=== PATIENT | female | born 1950 | race Caucasian/White ===

== ENCOUNTER 2017-07-05 10:16 | Outpatient (CLI) | payer MEDICARE, OTHER ==
--- NOTE | 2017-07-05 11:37 | XRAY Report ---
TWO VIEW CHEST: 07/05/2017 CLINICAL INDICATION: Hypertension, pneumonia. COMPARISON: 07/12/2010. FINDINGS: Frontal and lateral views of the chest demonstrate a normal cardiac silhouette. The lungs are hyperinflated, suggestive of COPD. Linear scarring or atelectasis is again noted in the lingula. No focal infiltrate, effusion, or pneumothorax is present. IMPRESSION: STABLE LEFT BASILAR SCARRING OR ATELECTASIS. NO SIGNIFICANT INTERVAL CHANGE. TD: 07/05/2017 11:36
== END 2017-07-05 10:17 | disposition home or self-care (01) ==
LOC: DI 10:16
PROVIDERS: ATTEND Family Medicine
DX: J18.8 Other pneumonia, unspecified organism (principal); I10 Essential (primary) hypertension
CPT/HCPCS: 71046

== ENCOUNTER 2017-12-03 11:16 | Outpatient (CLI) | payer MEDICARE, OTHER ==
--- NOTE | 2017-12-03 15:17 | XRAY Report ---
Procedure Date: 12/03/2017 Accession Number: [id number] / [id number] Procedure: XR - Foot 3 View RT CPT Code: FULL RESULT: EXAM: Foot 3 View RT DATE: 12/03/2017 11:37 AM CLINICAL HISTORY: CHRONIC R FOOT PX COMPARISON: None. TECHNIQUE: 3 views. FINDINGS: Bones: Inferior calcaneal spurring, plantar enthesopathy. No fractures or bone lesions. Joints: Mild degenerative changes of the midfoot with marginal osteophyte formation. Soft Tissues: Normal. No soft tissue swelling. IMPRESSION: Inferior calcaneal spurring and mild degenerative changes of the midfoot. RADIA
== END 2017-12-03 11:17 | disposition home or self-care (01) ==
LOC: DI 11:16
PROVIDERS: ATTEND Podiatrist
DX: M77.31 Calcaneal spur, right foot (principal); M19.071 Primary osteoarthritis, right ankle and foot

== ENCOUNTER 2018-12-16 09:28 | Outpatient (CLI) | payer MEDICARE, OTHER | END 2018-12-16 09:29 | disposition home or self-care (01) | LOC: RT 09:28 | PROVIDERS: ATTEND Surgery | DX: Z01.810 Encounter for preprocedural cardiovascular examination (principal); K42.9 Umbilical hernia without obstruction or gangrene | CPT/HCPCS: 93005 ==

== ENCOUNTER 2018-12-24 07:56 | Day surgery (SDC) | payer MEDICARE, OTHER ==
[~2018-12-24 07:56] MED LIST: CEFAZOLIN SODIUM IN 0.9 % NACL 2 GM/100 ML BAG IV ONE
[2018-12-24] MEDS ORDERED: LACTATED RINGERS 1,000 ML IV ONE (07:58)
--- NOTE | 2018-12-24 08:38 | ANESTHESIA ---
Pre-Anesthesia VS, & Labs - Diagnosis Umbilical hernia - Procedure Umbilical hernia repair Vital Signs: Temp Pulse Resp BP Pulse Ox 36 C L 83 18 151/98 H 95 12/24/18 08:02 12/24/18 08:02 12/24/18 08:02 12/24/18 08:02 12/24/18 08:02 Height 5 ft 4 in Weight (kg) 98 kg - NPO >8 hours - Is Patient ?: No Home Medications and Allergies Home Medications: Ambulatory Orders ALPRAZolam [Alprazolam] 0.25 mg PO DAILY PRN 12/16/18 Amlodipine Besylate 5 mg PO DAILY 12/16/18 Cholecalciferol (Vitamin D3) [Vitamin D] 2,000 unit PO DAILY 12/16/18 ALPRAZolam [Alprazolam] 0.25 mg PO DAILY PRN 12/16/18 Amlodipine Besylate 5 mg PO DAILY 12/16/18 Cholecalciferol (Vitamin D3) [Vitamin D] 2,000 unit PO DAILY 12/16/18 Allergies/Adverse Reactions: Allergies Allergy/AdvReac Type Severity Reaction Status Date / Time No Known Drug Allergies Allergy Verified 12/16/18 09:19 Anes History & Medical History - Anesthetic History Anesthesia Complications: reports: No previous complications Family history of Anesthesia Complications: Denies Family history of Malignant Hyperthermia: Denies - Medical History Cardiovascular: reports: Hypertension Pulmonary: reports: Pneumonia Gastrointestinal: reports: Colon polyps, Diverticulitis, Other Urinary: reports: None Musculoskeletal: reports: None Endocrine/Autoimmune: reports: None Skin: reports: Eczema Psychosocial: reports: Cannabis - Surgical History General: Bowel surgery, Colonoscopy Gynecologic: section, Hysterectomy Exam General: Alert, Oriented x3 Dental: WNL Mouth Openin Fingerbreadth Mallampati classification: II Thyromental Distance: 4-6 cm Respiratory: Lungs clear, Normal breath sounds Cardiovascular: Regular rate Neurological: Normal speech Mental/Cognitive Status: Alert/Oriented X3, Normal for patient Cognitive Status: Within normal limits Plan Anesthesia Type: General Consent for Procedure(s) Verified and Reviewed: Yes Code Status: Attempt Resuscitation ASA classification: 2-Mild systemic disease Is this case an emergency?: No
[2018-12-24] MEDS ORDERED: BUPIVACAINE 0.5%-EPI 1:200000 PF 30 ML VIAL ONE (09:41)
[2018-12-24] MEDS ORDERED: LIDOCAINE-MPF 1% 30 ML VIAL ONE (09:41)
[2018-12-24] MEDS ORDERED: ceFAZolin 1 GM VIAL ONE (10:11)
--- NOTE | 2018-12-24 10:39 | OPERATIVE REPORT ---
Operative Report - General Procedure Date: 12/24/18 Planned Procedure: Umbilical Hernia Repair Pre-Op Diagnosis: Umbilical Hernia Procedure Performed: Umbilical Hernia Repair Post Op Diagnosis: Same - Procedure Note Primary Surgeon: Erick Anesthesia Provider: SOILA Vanessa Anesthesia Technique: General LMA, Local Pathology: None Estimated Blood Loss (mL): 5 Indications: Incarcerated and Painful Umbilical Hernia Findings: 5 cm umbilical defect containing omentum and a loop of small bowel Complications: None apparent - Other Other Information/Narrative: After obtaining informed consent, the patient is brought to the operating room and placed in the supine position on the operating table. Following successful induction of general anesthesia, appropriate padding of all bony prominences, and placement of appropriate monitors, a timeout was held per SCOAP protocol. All elements of the perioperative safety checklist were observed during this procedure. Following infiltration with local anesthetic to create a field block, an incision was created directly through the umbilicus over the defect. This was carried down through the skin and subcutaneous tissue. The umbilical skin was released from the underlying fascia. This revealed a large complex hernia sac. The hernia sac itself was approximately 10 cm in diameter. Once the hernia sac was freed from the edges of the defect and we are able to reduce it back into the abdominal cavity, we noted the actual defect was approximately 5 cm. Due to the patient's body habitus and the size of the defect, I elected to repair this hernia using a ventral Arian mesh. An 8 cm patch was chosen and dipped into gentamicin containing solution. It was deployed carefully into the defect and flattened. The overlying leaflet were trimmed and sewn to the fascia with interrupted Prolene suture. The wound was checked for hemostasis and irrigated with warm saline solution. The umbilicus was reconstructed using the 0 Vicryl suture and the incisions were closed with 3-0 Vicryl and 4-0 Monocryl suture. All sponge, needle, and instrument counts were correct at the conclusion of the case. The patient was allowed to awaken from anesthesia without difficulty and taken to the postanesthesia care unit in good condition
[2018-12-24] MEDS ORDERED: HYDROmorphone 0.5 MG/0.5 ML SYRINGE IVP PRN (10:46)
[2018-12-24] MEDS ORDERED: ONDANSETRON 4 MG/2 ML VIAL IVP PRN (10:46)
[2018-12-24] MEDS ORDERED: oxyCODONE 5 MG TABLET PO PRN (10:46)
[2018-12-24 11:55] VITALS: BP 138/78
== END 2018-12-24 07:57 | disposition home or self-care (01) ==
LOC: SDS 07:56
PROVIDERS: ATTEND Surgery
PROC: 0WUF0JZ Supplement Abdominal Wall with Synthetic Substitute, Open Approach (ICD-10-PCS; principal; 2018-12-24 09:15)
DX: K42.9 Umbilical hernia without obstruction or gangrene (principal); I10 Essential (primary) hypertension; F17.210 Nicotine dependence, cigarettes, uncomplicated
CPT/HCPCS: 49585; C1781; J0690; J1170; J7120

== ENCOUNTER 2019-08-18 19:17 | Outpatient (CLI) | payer MEDICARE, OTHER | END 2019-08-18 19:18 | disposition home or self-care (01) | LOC: COV 19:17 | PROVIDERS: ATTEND Family Medicine | DX: R50.9 Fever, unspecified (principal); M79.10 Myalgia, unspecified site; R53.83 Other fatigue | CPT/HCPCS: 81599 ==

== ENCOUNTER 2020-01-29 17:11 | Inpatient (IN) | payer MEDICARE, OTHER ==
--- NOTE | 2020-01-29 17:33 | ED Physician Documentation ---
PD HPI ABD PAIN - Stated complaint Stated Complaint: ABD PX - Chief complaint Chief Complaint: Abd Pain - History obtained from History obtained from: Patient - History of Present Illness Timing - onset: How many days ago (2) Timing - duration: Days (2) Timing - details: Gradual onset, Still present, Waxing and waning Quality: Cramping, Aching, Fullness/distended, Pain Location: All over / everywhere (mostly mid abd to lower abd. Most painful around umbilicus in area of known hernia.), Periumbilical, Other (she has noted tenderness but not hardness in hernia area.) Improved by: Vomiting. No: BM Worsened by: Moving, Palpation Associated symptoms: Nausea, Vomiting. No: Fever, Diarrhea (has noted some small amount loose stool.), Constipation Similar symptoms before: Has not had sx before Recently seen: Clinic (Talked with Dr. Rojas regarding the recurrent hernia. She had had a previous hernia repair and it is developed out side and above of the prior. Decision process was to have it repaired electively when ready and the patient deferred at that time.) Review of Systems Constitutional: denies: Fever, Chills Nose: denies: Rhinorrhea / runny nose, Congestion Throat: denies: Sore throat Cardiac: denies: Chest pain / pressure Respiratory: denies: Dyspnea, Cough GI: reports: Abdominal Pain, Abdominal Swelling, Nausea, Vomiting. denies: Constipation, Hematemesis, Bloody / black stool : denies: Dysuria, Frequency Musculoskeletal: denies: Back pain Neurologic: reports: Generalized weakness. 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, Hysterectomy - Present Medications Home Medications: Ambulatory Orders Medication Instructions Recorded Confirmed ALPRAZolam [Alprazolam] 0.25 mg PO DAILY PRN 12/16/18 01/29/20 Amlodipine Besylate 5 mg PO DAILY 12/16/18 01/29/20 Cholecalciferol (Vitamin D3) 2,000 unit PO DAILY 12/16/18 01/29/20 [Vitamin D] - Allergies Allergies/Adverse Reactions: Allergies Allergy/AdvReac Type Severity Reaction Status Date / Time No Known Drug Allergies Allergy Verified 01/29/20 17:17 PD ED PE NORMAL - Vitals Vital signs reviewed: Yes - General General: Alert and oriented X 3, Well developed/nourished - HEENT HEENT: Moist mucous membranes, Pharynx benign - Neck Neck: Supple, no meningeal sign, No adenopathy - Cardiac Cardiac: RRR, No murmur - Respiratory Respiratory: Clear bilaterally - Abdomen Abdomen: No organomegaly, Other (Some firmness and distention of her supraumbilical hernia and it is tender but not hard. There is no redness of the area. Abdomen is distended with general increase in bowel sounds centrally. Diffuse mild tenderness.). No: Normal bowel sounds (increased) - Back Back: No CVA TTP - Derm Derm: Normal color, Warm and dry - Extremities Extremities: No tenderness to palpate, Normal ROM s pain, No edema, No calf tenderness / cord - Neuro Neuro: Alert and oriented X 3, No motor deficit, Normal speech Eye Opening: Spontaneous Motor: Obeys Commands Verbal: Oriented GCS Score: 15 Results - Vitals Vitals: Vital Signs - 24 hr 01/29/20 01/29/20 01/29/20 17:14 17:37 21:01 Temperature 36.9 C Heart Rate 85 74 76 Respiratory 20 22 16 Rate Blood Pressure 155/97 H 154/94 H 157/87 H O2 Saturation 94 96 99 Oxygen O2 Source Room air - Labs Labs: Laboratory Tests 01/29/20 01/29/20 01/29/20 17:54 17:54 20:00 WBC 11.3 H RBC 4.11 L Hgb 13.4 Hct 38.4 MCV 93.4 MCH 32.6 H MCHC 34.9 RDW 12.1 Plt Count 273 MPV 9.1 Neut # (Auto) 8.7 H Lymph # (Auto) 1.7 Jack # (Auto) 0.7 Eos # (Auto) 0.2 Baso # (Auto) 0.0 Absolute Nucleated RBC 0.00 Nucleated RBC % 0.0 Sodium 136 Potassium 3.7 Chloride 102 Carbon Dioxide 24 Anion Gap 10.0 BUN 10 Creatinine 0.8 Estimated GFR (MDRD) 71 L Glucose 135 H Calcium 9.3 Total Bilirubin 1.6 H AST 13 ALT 19 Alkaline Phosphatase 72 Total Protein 7.0 Albumin 4.2 Globulin 2.8 Albumin/Globulin Ratio 1.5 Lipase 23 Urine Color YELLOW Urine Clarity CLEAR Urine pH 5.5 Ur Specific Ken[place] <=1.005 Urine Protein NEGATIVE Urine Glucose (UA) NEGATIVE Urine Ketones NEGATIVE Urine Occult Blood NEGATIVE Urine Nitrite NEGATIVE Urine Bilirubin NEGATIVE Urine Urobilinogen 0.2 (NORMAL) Ur Leukocyte Esterase NEGATIVE Ur Microscopic Review NOT INDICATED Urine Culture Comments NOT INDICATED - Rads (name of study) abd CT Radiology: Prelim report reviewed (The bowel with some thickened wall in the anterior abdominal hernia sac. Small bowel obstruction with transition at that point.), See rad report PD MEDICAL DECISION MAKING - ED course Complexity details: re-evaluated patient (I could decompress the hernia but I don't believe I fully reduced it as she did not feel good relief of abd pain. ), considered differential (I can palpate at the hernia and its firm but reducible slowly I cannot tell if it fully reduces as there is still some deep tenderness. She still feels distended.), d/w patient ED course: Dr. Hare to consult and evaluate findings. Departure - Departure Disposition: [facility] DC/Xfer Clinical Impression: Incarcerated umbilical hernia, Small bowel obstruction Abdominal pain Qualifiers: Abdominal location: periumbilical Qualified Code(s): R10.33 - Periumbilical pain Condition: Serious Record reviewed to determine appropriate education?: Yes
[2020-01-29 18:00] LABS: BASOPHILS % (AUTO) 0.4 %; EOSINOPHILS # (AUTO) 0.2 10^3/uL (0.0-0.7); EOSINOPHILS % (AUTO) 1.8 %; HGB - HEMOGLOBIN 13.4 g/dL (12.0-16.0); LYMPHOCYTES # (AUTO) 1.7 10^3/uL (1.5-3.5); LYMPHOCYTES % (AUTO) 14.6 %; MEAN CORPUSCULAR HEMOGLOBIN 32.6 pg (27.0-31.0); MEAN CORPUSCULAR HGB CONC 34.9 g/dL (32.0-36.0); MEAN CORPUSCULAR VOLUME 93.4 fL (81.0-99.0); MEAN PLATELET VOLUME 9.1 fL (7.9-10.8); MONOCYTES # (AUTO) 0.7 10^3/uL (0.0-1.0); NEUTROPHILS # (AUTO) 8.7 10^3/uL (1.5-6.6); NEUTROPHILS % (AUTO) 76.8 %; PLT - PLATELET COUNT 273 10^3/uL (130-450); RED BLOOD COUNT 4.11 10^6/uL (4.20-5.40); RED CELL DISTRIBUTION WIDTH 12.1 % (12.0-15.0); WHITE BLOOD COUNT 11.3 x10^3/uL (4.8-10.8)
[2020-01-29] MEDS ORDERED: SODIUM CHLORIDE 0.9% 1,000 ML IV STA (18:08)
[2020-01-29] MEDS ORDERED: ONDANSETRON 4 MG/2 ML VIAL IVP STA (18:08)
[2020-01-29] MEDS ORDERED: KETOROLAC 30 MG/ML VIAL IVP STA (18:08)
[2020-01-29] MEDS ORDERED: ACETAMINOPHEN 1,000 MG/100 ML 100 ML IV ONE (18:09)
[2020-01-29 18:14] LABS: ALBUMIN 4.2 g/dL (3.2-5.5); ALBUMIN/GLOBULIN RATIO 1.5 (1.0-2.2); BILIRUBIN,TOTAL 1.6 mg/dL (0.2-1.0); CALCIUM 9.3 mg/dL (8.5-10.3); CREATININE 0.8 mg/dL (0.4-1.0)
[2020-01-29] MEDS ORDERED: IOVERSOL 320 100 ML VIAL IVP ONE ×2 (19:05→19:23)
--- NOTE | 2020-01-29 19:45 | CT Report ---
PROCEDURE: Abdomen/Pelvis W INDICATIONS: mid to left abd pain 2 days CONTRAST: IV CONTRAST: Optiray 320 ml: 100 PO CONTRAST: *NO PO CONTRAST TECHNIQUE: After the administration of intravenous contrast, 5 mm thick sections acquired from the diaphragms to the symphysis. 5 mm thick coronal and sagittal reformats were acquired. For radiation dose reducti on, the following was used: automated exposure control, adjustment of mA and/or kV according to trevor ent size. COMPARISON: None. FINDINGS: Image quality: Excellent. ABDOMEN: Lung bases: Lung bases are clear. Heart size is normal. Solid organs: Liver and spleen are normal in size and enhancement. Gallbladder is within normal scanlon its Biliary system is non dilated. Pancreas enhances normally. No adrenal nodules. Kidneys demons trate normal size and enhancement, without hydronephrosis. Peritoneum and bowel: Multiple dilated loops of small bowel noted. Loops of small bowel are dilated u p to 4.2 cm. Transition zone is in the mid ileum at the level of a periumbilical ventral hernia which contains a loop of small bowel. Mild circumferential wall thickening involving a portion of the candice iated loop of small bowel which could be due to under distention versus early ischemia/angulation. Sc attered diverticuli noted in the colon without evidence of diverticulitis. Trace free fluid is noted. No free air. Nodes and vessels: No retroperitoneal or mesenteric adenopathy by size criteria. Aorta and inferior vena cava are normal in size. Miscellaneous: No ventral hernias. PELVIS: Genitourinary: Bladder wall thickness is normal. Miscellaneous: No inguinal hernias or adenopathy. Bones: No suspicious bony lesions. No vertebral body compression fractures. Spine degenerative disc disease and facet arthropathy are noted. IMPRESSION: 1. Small bowel obstruction related to periumbilical ventral midline hernia. There is mild circumferen ce wall thickening involving a pertinent portion of the herniated loop of small bowel which could be due to under distention versus early ischemia/angulation. 2. Colonic diverticulosis without evidence of diverticulitis. 3. Trace free fluid. No free intraperitoneal air. Reviewed by: Chelsea Nye MD, PhD on 01/29/2020 7:43 PM PDT Approved by: Chelsea Nye MD, PhD on 01/29/2020 7:43 PM PDT Station ID: [id number]
[2020-01-29 20:10] LABS: BILIRUBIN,URINE NEGATIVE (NEGATIVE); GLUCOSE, URINE (UA) NEGATIVE (NEGATIVE); KETONES,URINE (UA) NEGATIVE (NEGATIVE); LEUKOCYTE ESTERASE, URINE NEGATIVE (NEGATIVE); NITRITE,URINE NEGATIVE (NEGATIVE); OCCULT BLOOD,URINE NEGATIVE (NEGATIVE); PH,URINE 5.5 PH (5.0-7.5); PROTEIN,URINE NEGATIVE (NEGATIVE); UROBILINOGEN,URINE 0.2 (NORMAL) E.U./dL (NORMAL)
[2020-01-29 20:11] LABS: CLARITY,URINE CLEAR (CLEAR)
[2020-01-29] MEDS ORDERED: HYDROmorphone 1 MG/ML CARPUJECT IVP STA (21:43)
[2020-01-29] MEDS ORDERED: ONDANSETRON 4 MG/2 ML VIAL IVP PRN (23:58)
[2020-01-29] MEDS ORDERED: ACETAMINOPHEN 1,000 MG/100 ML 100 ML IV PRN (23:58)
[2020-01-30] MEDS: D5NS W/20 MEQ KCL 1,000 ML IV SCH ×2 (01:23→08:55)
[2020-01-30] MEDS: METOCLOPRAMIDE 10 MG/2 ML VIAL IVP SCH ×5 (01:23→23:55)
[2020-01-30] MEDS: methocarbamoL 500 MG TABLET PO SCH ×5 (01:23→23:52)
[2020-01-30] MEDS: SODIUM CHLORIDE FLUSH 0.9% 10 ML SYRINGE IVP SCH ×4 (01:24→23:59)
[2020-01-30] MEDS: SODIUM CHLORIDE FLUSH 0.9% 10 ML SYRINGE IVP PRN ×2 (04:44→04:51)
[2020-01-30] MEDS: HYDROmorphone 0.5 MG/0.5 ML SYRINGE IVP PRN ×5 (04:44→22:48)
[2020-01-30] MEDS: PANTOPRAZOLE 40 MG VIAL IVP SCH (07:01)
[2020-01-30] MEDS: PHENOL THROAT SPRAY 177 ML MM PRN ×2 (07:02→09:05)
--- NOTE | 2020-01-30 07:31 | XRAY Report ---
PROCEDURE: Chest for Line Placement INDICATIONS: Post line placement TECHNIQUE: One view of the chest was acquired. COMPARISON: 07/05/2017 FINDINGS: Surgical changes and devices: Nasogastric tube projects across the GE junction with tip in the proxim al stomach and side port in the distal esophagus. Recommend advancing nasogastric tube several centim eters.. Lungs and pleura: No pleural effusions or pneumothorax. Lungs are clear. Mediastinum: Mediastinal contours appear normal. Heart size is normal. Bones and chest wall: No suspicious bony lesions. Overlying soft tissues appear unremarkable. IMPRESSION: 1. No acute cardiopulmonary disease process.. 2. Side port of nasogastric tube in the distal esophagus. Recommend advancing the tube several centim eters. Reviewed by: Chelsea Nye MD, PhD on 01/30/2020 7:30 AM PDT Approved by: Chelsea Nye MD, PhD on 01/30/2020 7:30 AM PDT Station ID: [id number]
[2020-01-30] MEDS ORDERED: ENOXAPARIN 40 MG/0.4 ML SYRINGE SUBQ SCH (09:00)
--- NOTE | 2020-01-30 10:22 | PHARMACY PROGRESS NOTE ---
- Best Possible Medication History Admit Date and Time: 01/29/20 1171 Processed by: Nursing Medication History completed: Yes As the person ultimately responsible for medication therapy, providers are able to order a medication from an existing home medication list in [facility] via the "Reconcile Routine" prior to Confirmation of that medication by user support analyst supervisor. Such practice is discouraged except when the physician, in their clinical judgment, deems that a medical need exists for a medication without regard to previous use.
--- NOTE | 2020-01-30 13:45 | SURGERY HX AND PHYSICAL(T) ---
Surgical History & Physical - Chief Complaint/HPI History of Present Illness: 69-year-old female presenting with small bowel obstruction/recurrent umbilical hernia inpatient with history of multiple abdominal surgeries including recent umbilical hernia repair who presents acutely with small bowel obstruction, transition point within the recurrent umbilical hernia. Patient had been seen in surgery clinic recently at which time she was diagnosed with recurrence of her umbilical hernia status post relatively recent repair by Dr. Michelle Suarez. Patient past surgical history include the followin. section 2. Tubal ligation 3. Sigmoid resection 4. Umbilical hernia - PMH/PSH/Social Hx Does the pt have a hx of MRSA?: No Neurological History: None Eyes, Ears, Nose, Throat: Chronic vision loss Cardiovascular: Hypertension Respiratory: Pneumonia Skin: Eczema Endocrine/Autoimmune: None Gastrointestinal: Colon polyps, Diverticulitis, Other Is Patient ?: No Urinary: None Musculoskeletal: None Blood Disorders: None Psychiatric: None PMH Other: 18 inches of colon resected for diverticulitis General: Bowel surgery, Colonoscopy Smoking Status: Current some day smoker Does the pt drink ETOH?: Yes Frequency: Occasional Does the pt have substance abuse?: Yes Substance Use and Type: Marijuana - Home Meds and Allergies Home Medications: ALPRAZolam [Alprazolam] 0.25 mg PO DAILY PRN 12/16/18 Amlodipine Besylate 5 mg PO DAILY 12/16/18 Cholecalciferol (Vitamin D3) [Vitamin D] 2,000 unit PO DAILY 12/16/18 Allergies/Adverse Reactions: Allergies Allergy/AdvReac Type Severity Reaction Status Date / Time No Known Drug Allergies Allergy Verified 01/29/20 17:17 - Review of Systems Gastrointestinal: Nausea, Vomiting, Abdominal pain - Vital Signs Heart Rate: 72 Blood Pressure: 138/78 Temperature: 36.6 C Respiratory Rate: 16 O2 Saturation: 97 Weight (kg): 102.2 kg Height: 1.63 m - Physical Exam General Appearance: positive: No acute distress, Alert, Mild distress Eyes Bilatera: positive: Normal inspection, PERRL, EOMI ENT: positive: ENT inspection nml Neck: positive: Nml inspection Respiratory: positive: Chest non-tender, No respiratory distress, Breath sounds nml. negative: Wheezes, Rales, Rhonchi Cardiovascular: positive: Regular rate & rhythm Abdomen: positive: Tenderness, Other (Distended, positive tenderness to deep palpation most notably overlying the umbilicus, palpable incarcerated hernia consistent with bowel as noted on CT scan. No rebound, no guarding. Overlying erythema.). negative: Guarding, Rebound Extremities: positive: Non-tender, Full ROM, Nml appearance Neurologic/Psychiatric: positive: Oriented x3, CN's nml (2-12), Motor nml, Sensation nml, Mood/affect nml - Patient Review Patient Review: Problems were reviewed with the patient during this visit. Medi cations were reviewed with the patient during this visit. Allergies were reviewed this patient during this visit. Pertinent Tests Reviewed: All pertitent test for this patient were reviewed. - Assessment & Plan Assessment and Plan: 69-year-old female with incarcerated umbilical hernia, recurrent, with small bowel unable to be reduced. Status post nasogastric decompression without significant improvement in constellation of symptoms most notably physical exam with persistent incarceration. Multiple prior abdominal surgeries. In the setting of incarcerated small bowel risk of and strangulation is significant. Attempted manual reduction to afford elective repair without success. Recommend operative intervention given the importance of achieving a viable repair using mesh underlay in this patient with recurrent hernia; if await bowel compromise would be unable to afford use of mesh reinforcement which would necessitate likely additional repair in the future. Risk benefits discussed questions answered informed consent has been obtained. Plan going forward is as follows: 1. Bowel rest, GI prophylaxis, nasogastric tube decompression, operative intervention. 2. Plan open primary repair, diagnostic laparoscopy, laparoscopic adhesio lysis, laparoscopic assisted intraperitoneal onlay mesh AKA IPOM.
[2020-01-30] MEDS ORDERED: BUPIVACAINE 0.5% PF 30 ML VIAL ONE (14:26)
[2020-01-30] MEDS ORDERED: LIDOCAINE 1%-EPI 1:100000 20 ML MDV ONE (14:26)
--- NOTE | 2020-01-30 14:26 | ANESTHESIA ---
Pre-Anesthesia VS, & Labs - Diagnosis Incarcerated Umbilical hernia - Procedure Exp lap, lysis of adhesions, repair with mesh Vital Signs: Temp Pulse Resp BP Pulse Ox 36.6 C 72 16 138/78 H 97 01/30/20 14:01 01/30/20 14:01 01/30/20 14:01 01/30/20 14:01 01/30/20 14:01 Height: 5 ft 4 in Weight (kg): 102.2 kg Body Mass Index: 38.7 BMI Classification: Obese - Is Patient ?: No - Lab Results Current Lab Results: Laboratory Tests 01/29/20 17:54: Sodium 136, Potassium 3.7, Chloride 102, Carbon Dioxide 24, A nion Gap 10.0, BUN 10, Creatinine 0.8, Estimated GFR (MDRD) 71 L, Glucose 135 H, Calcium 9.3, Total Bilirubin 1.6 H, AST 13, ALT 19, Alkaline Phosphatase 72, Total Protein 7.0, Albumin 4.2, Globulin 2.8, Albumin/Globulin Ratio 1.5, Lipase 23 01/29/20 17:54: WBC 11.3 H, RBC 4.11 L, Hgb 13.4, Hct 38.4, MCV 93.4, MCH 32.6 H , MCHC 34.9, RDW 12.1, Plt Count 273, MPV 9.1, Neut # (Auto) 8.7 H, Lymph # (Auto) 1.7, [place] # (Auto) 0.7, Eos # (Auto) 0.2, Baso # (Auto) 0.0, Absolute Nucleated RBC 0.00, Nucleated RBC % 0.0 Fish Bones: 01/29/20 17:54 01/29/20 17:54 Home Medications and Allergies Active Medications Enoxaparin Sodium (Lovenox) 40 mg SUBQ DAILY [facility] Last Admin: 01/30/20 08:56 Dose: 40 mg Documented by: Hydromorphone HCl (Dilaudid Inj Syringe) 0.5 mg IVP Q2H PRN PRN Reason: Pain 8 to 10 Last Admin: 01/30/20 04:44 Dose: 0.5 mg Documented by: Potassium Chloride/Dextrose/Sod Cl () 1,000 mls @ 125 mls/hr IV .Q8H [facility] Last Admin: 01/30/20 08:55 Dose: 125 mls/hr Documented by: Acetaminophen (Ofirmev) 100 mls @ 400 mls/hr IV Q6HR PRN PRN Reason: PAIN Methocarbamol (Robaxin) 500 mg PO Q6HR [facility] Last Admin: 01/30/20 12:13 Dose: 500 mg Documented by: Metoclopramide HCl (Reglan Inj) 10 mg IVP Q6HR [facility] Last Admin: 01/30/20 12:16 Dose: 10 mg Documented by: Ondansetron HCl (Zofran Inj) 4 mg IVP Q6HR PRN PRN Reason: Nausea / Vomiting Last Admin: 01/30/20 04:51 Dose: 4 mg Documented by: Pantoprazole Sodium (Protonix) 40 mg IVP QDAC [facility] Last Admin: 01/30/20 07:01 Dose: 40 mg Documented by: Phenol/Menthol (Chloraseptic) 2 sprays MM Q2HR PRN PRN Reason: Throat Pain Last Admin: 01/30/20 09:05 Dose: 2 sprays Documented by: Sodium Chloride (Normal Saline Flush 0.9%) 10 ml IVP 0100,0900,1700 [facility] Last Admin: 01/30/20 12:17 Dose: Not Given Documented by: Sodium Chloride (Normal Saline Flush 0.9%) 10 ml IVP PRN PRN PRN Reason: NEEDED PER PROVIDER ORDERS Last Admin: 01/30/20 04:51 Dose: 10 ml Documented by: ALPRAZolam [Alprazolam] 0.25 mg PO DAILY PRN 12/16/18 Amlodipine Besylate 5 mg PO DAILY 12/16/18 Cholecalciferol (Vitamin D3) [Vitamin D] 2,000 unit PO DAILY 12/16/18 Allergies/Adverse Reactions: Allergies Allergy/AdvReac Type Severity Reaction Status Date / Time No Known Drug Allergies Allergy Verified 01/29/20 17:17 Anes History & Medical History - Anesthetic History Anesthesia Complications: reports: No previous complications, Muscle weakness Family history of Malignant Hyperthermia: Denies - Medical History Cardiovascular: reports: Hypertension Gastrointestinal: reports: Colon polyps, Diverticulitis, Other Urinary: reports: None Neuro: reports: None Musculoskeletal: reports: None Endocrine/Autoimmune: reports: None Blood Disorders: reports: None Skin: reports: Eczema Smoking Status: Current some day smoker History of Cancer?: No Other Past Medical History: 18 inches of colon resected for diverticulitis - Surgical History General: Bowel surgery, Colonoscopy Gynecologic: section, Hysterectomy Exam General: Alert Dental: WNL Mouth Openin Fingerbreadth Neck Mobility: Reduced Mallampati classification: III Thyromental Distance: 4-6 cm Respiratory: Lungs clear, Normal breath sounds, No respiratory distress, No accessory muscle use Cardiovascular: Regular rate, Normal S1, Normal S2, No murmurs Abdomen: Normal bowel sounds, Soft, No tenderness, No hepatospenomegaly, No masses Extremities: No clubbing, No cyanosis, No edema, Normal pulses, No tenderness/swelling Neurological: Normal gait, Normal speech, Strength at 5/5 X4 ext, Normal tone, Sensation intact, Cranial nerves 3-12 NL, Reflexes 2+ Mental/Cognitive Status: Alert/Oriented X3, Normal for patient Cognitive Status: Within normal limits Plan Anesthesia Type: General Consent for Procedure(s) Verified and Reviewed: Yes Code Status: Attempt Resuscitation ASA classification: 3-Severe systemic disease Is this case an emergency?: Yes
[2020-01-30] MEDS ORDERED: BUPIVACAINE 0.5% PF 30 ML VIAL SUBQ ONE ×3 (14:57)
[2020-01-30] MEDS ORDERED: LIDOCAINE 1%-EPI 1:100000 20 ML MDV SUBQ ONE ×3 (14:57)
[2020-01-30] MEDS ORDERED: ePHEDrine 50 MG/ML VIAL IVP PRN (15:04)
[2020-01-30] MEDS ORDERED: METOCLOPRAMIDE 10 MG/2 ML VIAL IVP PRN (15:04)
[2020-01-30] MEDS ORDERED: MORPHINE 2 MG/ML CARPUJECT IVP PRN (15:04)
[2020-01-30] MEDS ORDERED: fentaNYL 100 MCG/2 ML VIAL IVP PRN (15:04)
[2020-01-30] MEDS ORDERED: NALOXONE 0.4 MG/ML VIAL IVP PRN (15:04)
[2020-01-30] MEDS ORDERED: ATROPINE ABBOJECT 1 MG/10 ML SYRINGE IVP PRN (15:04)
[2020-01-30] MEDS ORDERED: ONDANSETRON 4 MG/2 ML VIAL IVP PRN (15:04)
[2020-01-30] MEDS ORDERED: LACTATED RINGERS 1,000 ML IV SCH (16:00)
[2020-01-30] MEDS ORDERED: LACTATED RINGERS 150 ML IV ONE (16:53)
[2020-01-30] MEDS ORDERED: HYDROmorphone 0.5 MG/0.5 ML SYRINGE ONE ×2 (17:07→17:24)
--- NOTE | 2020-01-30 17:23 | ANESTHESIA POST OP EVALUATION ---
Anesthesia Post Eval - Post Anesthesia Eval Vitals: Last Vital Signs Temp 36.6 C 01/30/20 17:14 Pulse 83 01/30/20 17:14 Resp 14 01/30/20 17:14 BP 147/70 H 01/30/20 17:14 Pulse Ox 94 01/30/20 17:14 CV Function Including HR & BP: positive: Stable Pain Control: positive: Satisfactory Nausea & Vomiting: positive: Negative Mental Status: positive: Baseline Respiratory Status: Airway Patent Hydration Status: Satisfactory (awake alert and comfortable. Going to [facility].) Anesthesia Complications: positive: None
--- NOTE | 2020-01-30 23:31 | OPERATIVE REPORT ---
Operative Report - General Admit Date: 01/29/20 Procedure Date: 01/30/20 Planned Procedure: 1. Diagnostic laparoscopy 2. Laparoscopic adhesiolysis 3. Laparoscopic assisted ventral hernia repair Pre-Op Diagnosis: Incarcerated, recurrent umbilical hernia; multiple abdominal surgeries Procedure Performed: 1. Takedown of historic mesh disc, open 2. Open and laparoscopic adhesio lysis of incarcerated small bowel 3. Incarcerated hernia containing Meckel's diverticulum for which diverticulectomy performed 4. Serosal reinforcement at sites of adhesions 5. Laparoscopic-assisted ventral hernia repair with echo ST system 6. Drain placement Post Op Diagnosis: Same; incarcerated small bowel with Meckel's diverticulum large within the - Procedure Note Primary Surgeon: Ananya Secondary Surgeon: Jimbo Anesthesia Provider: Jane Anesthesia Technique: General ET tube, Local Pathology: 1. Meckel's diverticulum 2. Historic umbilical mesh Estimated Blood Loss (mL): 25 Drain/Tube Type: Damien drain Indications: 69-year-old female with multiple prior abdominal surgeries including but not limited to the followin. section 2. Tubal ligation 3. Reported sigmoid resection for diverticular disease 4. Umbilical hernia repair with mesh, open She has been seen in surgery clinic for reevaluation and found to have recurrent hernia and need operative repair. She presents in the acute setting with incarceration, without ability to reduce small bowel noted on CAT scan. There is erythema overlying the area and she also has acute obstructive symptoms. Patient was advised of the indication to undergo urgent operative intervention given failure of nonoperative management. Risk and benefits discussed questions answered informed consent obtained. Findings: 1. Incarcerated umbilical hernia containing small bowel with portion adhesed to historic mesh 2. Hernia contents including Meckel's diverticulum 3. No mesh erosion into bowel, extensive adhesions at the periumbilical scar 4. Abdominal adhesions in the pelvis from the patient's historic section amongst others for which adhesio lysis was performed 5. Successful laparoscopic assisted intraperitoneal onlay mesh AKA IPOM Complications: NONE - Other Other Information/Narrative: Addendum pending.
[2020-01-30] MEDS ORDERED: ALPRAZolam 0.25 MG TABLET PO PRN (23:34)
[2020-01-30] MEDS: KETOROLAC 30 MG/ML VIAL IVP SCH (23:55)
[2020-01-31] MEDS: methocarbamoL 500 MG TABLET PO SCH ×6 (00:52→23:51)
[2020-01-31] MEDS: ACETAMINOPHEN 1,000 MG/100 ML 100 ML IV SCH ×4 (00:55→17:37)
[2020-01-31] MEDS: HYDROmorphone 0.5 MG/0.5 ML SYRINGE IVP PRN ×3 (03:44→15:35)
[2020-01-31] MEDS: D5NS W/20 MEQ KCL 1,000 ML IV SCH ×2 (03:44→11:15)
[2020-01-31] MEDS: KETOROLAC 30 MG/ML VIAL IVP SCH ×4 (06:30→23:52)
[2020-01-31] MEDS: METOCLOPRAMIDE 10 MG/2 ML VIAL IVP SCH ×4 (06:30→23:51)
[2020-01-31] MEDS: PANTOPRAZOLE 40 MG VIAL IVP SCH (06:31)
[2020-01-31] MEDS: HEPARIN 5,000 UNIT/ML VIAL SUBQ SCH ×2 (11:04→20:53)
[2020-01-31] MEDS: CHOLECALCIFEROL 25 MCG TABLET PO SCH (11:07)
[2020-01-31] MEDS: amLODIPine 5 MG TABLET PO SCH (11:08)
[2020-01-31] MEDS: SODIUM CHLORIDE FLUSH 0.9% 10 ML SYRINGE IVP SCH ×3 (11:15→23:52)
[2020-01-31] MEDS: PREGABALIN 100 MG CAPSULE PO SCH ×2 (11:15→20:52)
[2020-01-31] MEDS: polyethylene glycoL 3350 17 GM PACKET PO SCH ×2 (11:15→20:52)
[2020-01-31] MEDS: DOCUSATE SODIUM 100 MG CAPSULE PO SCH ×2 (11:15→20:52)
--- NOTE | 2020-01-31 19:48 | PROVIDER PROGRESS NOTE ---
Progress Note Subjective Postoperative day 1 status post operative intervention listed below. No nausea, no vomiting. No significant pain with appropriate management per current regimen. Awaiting resumption of bowel function. Procedure Performed: 1. Takedown of historic mesh disc, open 2. Open and laparoscopic adhesio lysis of incarcerated small bowel 3. Incarcerated hernia containing Meckel's diverticulum for which diverticulectomy performed 4. Serosal reinforcement at sites of adhesions 5. Laparoscopic-assisted ventral hernia repair with echo ST system 6. Drain placement Post Op Diagnosis: Same; incarcerated small bowel with Meckel's diverticulum large within the Findings: 1. Incarcerated umbilical hernia containing small bowel with portion adhesed to historic mesh 2. Hernia contents including Meckel's diverticulum 3. No mesh erosion into bowel, extensive adhesions at the periumbilical scar 4. Abdominal adhesions in the pelvis from the patient's historic section amongst others for which adhesio lysis was performed 5. Successful laparoscopic assisted intraperitoneal onlay mesh AKA IPOM Objective Afebrile hemodynamically acceptable General Appearance: positive: No acute distress Eyes Bilateral: positive: Normal inspection ENT: positive: ENT inspection nml Neck: positive: Nml inspection Respiratory: positive: Chest non-tender, No respiratory distress, Breath sounds nml. negative: Wheezes, Rales, Rhonchi Cardiovascular: positive: Regular rate & rhythm Abdomen: positive: No distention, Other. negative: Guarding, Rebound Extremities: positive: Non-tender, Full ROM, Nml appearance Neurologic/Psychiatric: positive: Oriented x3, CN's nml (2-12) Wounds clean dry and intact with dressings in place. Impression/Plan Postop day #1 status post above listed procedure. Incarcerated small bowel within recurrent umbilical hernia. Resection of Meckel's diverticulum also noted within hernia defect. Overall doing exceedingly well. Plan going forward is as follows: (1) GI - IVF, bowel regimen, advance diet as tolerated. GI ppx. [Anticipate ileus and awaiting full resumption of bowel function]. Opiate sparring analgesia. (2) SURGERY - will remove drain prior to discharge likely tomorrow; abdominal binder while out of bed. (3) Renal/Lytes - Hep-Lock IVF. Renal indices within normal limits. (4) Respiratory - O2 as necessary. Continue IS. (5) Heme - Will continue with DVT ppx. H/H stable. (6) Cardiovascular - HD acceptable. (7) Neuro - Opiate sparring analgesia. Antispasmodics with Robaxin. [Toradol]. Neuropathic agents, Lyrica. Celebrex. (8) Immune/Infectious Disease - no indication for continued antibiotics. (9) DISPOSITION - likely discharge within next 24 to 48 hours.
[2020-01-31] MEDS: CELECOXIB 100 MG CAPSULE PO SCH (20:52)
[2020-01-31] MEDS ORDERED: PREGABALIN 100 MG CAPSULE PO SCH (21:00)
[2020-02-01] MEDS: ACETAMINOPHEN 1,000 MG/100 ML 100 ML IV SCH ×4 (00:03→17:27)
[2020-02-01] MEDS: oxyCODONE 5 MG TABLET PO PRN ×4 (02:48→22:04)
[2020-02-01] MEDS: METOCLOPRAMIDE 10 MG/2 ML VIAL IVP SCH ×3 (06:03→17:21)
[2020-02-01] MEDS: PANTOPRAZOLE 40 MG VIAL IVP SCH (06:03)
[2020-02-01] MEDS: methocarbamoL 500 MG TABLET PO SCH ×3 (06:03→17:21)
[2020-02-01] MEDS: KETOROLAC 30 MG/ML VIAL IVP SCH ×3 (06:03→17:21)
[2020-02-01] MEDS: polyethylene glycoL 3350 17 GM PACKET PO SCH ×2 (09:09→20:13)
[2020-02-01] MEDS: DOCUSATE SODIUM 100 MG CAPSULE PO SCH ×2 (09:10→20:13)
[2020-02-01] MEDS: CHOLECALCIFEROL 25 MCG TABLET PO SCH (09:10)
[2020-02-01] MEDS: CELECOXIB 100 MG CAPSULE PO SCH ×2 (09:10→20:13)
[2020-02-01] MEDS: amLODIPine 5 MG TABLET PO SCH (09:10)
[2020-02-01] MEDS: HEPARIN 5,000 UNIT/ML VIAL SUBQ SCH ×2 (09:11→20:16)
[2020-02-01] MEDS: PREGABALIN 100 MG CAPSULE PO SCH ×2 (09:16→20:14)
--- NOTE | 2020-02-01 11:09 | DISCHARGE SUMMARY ---
"Discharge Summary Admit Date: 01/30/20 Discharge Date: 02/02/20 Discharging Provider: Ananya Primary Care Provider: Erick (Surgery) Code Status: Attempt Resuscitation Condition at Discharge: Good Discharge Disposition: 01 Home, Self Care - DIAGNOSES Admission Diagnoses: 1. History of multiple prior abdominal surgeries 2. Incarcerated umbilical hernia 3. Recurrent umbilical hernia 4. Obesity, Morbid with HTN Discharge Diagnoses with Status of Each Condition: 1. History of multiple prior abdominal surgeries - UNCHANGED 2. Incarcerated umbilical hernia, NO STRANGULATION - RESOLVED 3. Recurrent umbilical hernia - RESOLVED 4. Obesity, Morbid with HTN - UNCHANGED 5. ABDOMINAL ADHESIONS - RESOLVED 6. MECKELS DIVERTICULUM - RESOLVED/RESECTED - HPI History of Present Illness: 69-year-old female presenting with small bowel obstruction/recurrent umbilical hernia inpatient with history of multiple abdominal surgeries including recent umbilical hernia repair who presents acutely with small bowel obstruction, transition point within the recurrent umbilical hernia. Patient had been seen in surgery clinic recently at which time she was diagnosed with recurrence of her umbilical hernia status post relatively recent repair by Dr. Michelle Suarez. Patient past surgical history include the followin. section 2. Tubal ligation 3. Reported sigmoid resection for diverticular disease 4. Umbilical hernia repair with mesh, open She has been seen in surgery clinic for reevaluation and found to have recurrent hernia and need operative repair. She presents in the acute setting with incarceration, without ability to reduce small bowel noted on CAT scan. There is erythema overlying the area and she also has acute obstructive symptoms. Patient was advised of the indication to undergo urgent operative intervention given failure of nonoperative management. Patient was indeed advised that this hernia most likely would not respond to nonoperative management as a bridge to elective repair, which was her p reference. Risk and benefits discussed questions answered informed consent obtained. - CONSULTS | PROCEDURES Procedures: Procedure Performed: 1. Takedown of historic mesh disc, open 2. Open and laparoscopic adhesio lysis of incarcerated small bowel 3. Incarcerated hernia containing Meckel's diverticulum for which diverticulectomy performed 4. Serosal reinforcement at sites of adhesions 5. Laparoscopic-assisted ventral hernia repair with echo ST system 6. Drain placement - HOSPITAL COURSE Hospital Course: She was admitted with nasogastric tube decompression and planned observation to determine if this area of incarceration would spontaneously reduce and avoid emergent operative intervention. She was advised that this was low and unlikely to achieve the desired effect and she would probably necessitate urgent intervention without opportunity to defer and bridge towards elective repair. Ultimately she underwent the following procedure after hernia persistently could not be reduced. Procedure Performed: 1. Takedown of historic mesh disc, open 2. Open and laparoscopic adhesio lysis of incarcerated small bowel 3. Incarcerated hernia containing Meckel's diverticulum for which diver ticulectomy performed 4. Serosal reinforcement at sites of adhesions 5. Laparoscopic-assisted ventral hernia repair with echo ST system 6. Drain placement Postoperatively she was removed from her and her NG tube. Patient underwent operative intervention as listed in the electronic medical re cord. Tolerated procedure well for which there was no complication. Postoperatively the patient was managed for postoperative analgesia and resumption of bowel function. Patient had successfully passed trial of void once Vilchis was removed. Tolerated oral intake without any complication. Denied nausea denied vomiting. Was advanced for diet without any complication by postoperative day 2. On postoperative day 3 she reported some minimal flatus however no full resumption of bowel function. We maintained aggressive bowel regimen and towards avoiding readmission with nausea vomiting as a consequence of ileus in the setting of the extensive adhesio lysis we maintained her 1 additional ov ernight. On this early a.m. of postoperative day #4 or more reasonably #3/#4, patient had full resumption of bowel function with bowel movements as well as flatus, tolerant of regular diet, was removed for ELANA and which was serosanguineous, was extensively instructed on medical management of her postoperative pain as well as use of abdominal binder. She was counseled on activity as well. Discharge instructions given. Analgesia provided at time of discharge. Patient plan for follow-up and will be notified of pathology once returned. She would need to return to clinic as well for staple removal. - ALLERGIES Allergies/Adverse Reactions: Allergies Allergy/AdvReac Type Severity Reaction Status Date / Time No Known Drug Allergies Allergy Verified 01/29/20 17:17 - MEDICATIONS Home Medications: Ambulatory Orders Medication Instructions Recorded Confirmed ALPRAZolam [Alprazolam] 0.25 mg PO DAILY PRN 12/16/18 01/29/20 Amlodipine Besylate 5 mg PO DAILY 12/16/18 01/29/20 Cholecalciferol (Vitamin D3) 2,000 unit PO DAILY 12/16/18 01/29/20 [Vitamin D3] Acetaminophen [Tylenol] 650 mg PO Q6HR #240 capsule 02/02/20 Celecoxib [CeleBREX] 100 mg PO BID #60 capsule 02/02/20 Cholecalciferol [Vitamin D3] 50 mcg PO DAILY tablet 02/02/20 Docusate Sodium 100Mg Capsule 100 mg PO BID #60 capsule 02/02/20 [Colace 100Mg Capsule] Pantoprazole Sodium 40 mg PO DAILY #30 granpkt. 02/02/20 Pregabalin [Lyrica] 100 mg PO BID #60 capsule 02/02/20 methocarbamoL [Robaxin] 500 mg PO Q6HR PRN #60 tablet 02/02/20 oxyCODONE [Roxicodone] 5 mg PO Q4HR PRN #40 tablet 02/02/20 polyethylene glycoL 3350 [Miralax] 17 gm PO BID #60 packet 02/02/20 - PHYSICAL EXAM AT DISCHARGE General Appearance: positive: No acute distress, Alert Eyes Bilateral: positive: Normal inspection, PERRL, EOMI ENT: positive: ENT inspection nml Neck: positive: Nml inspection Respiratory: positive: Chest non-tender, No respiratory distress, Breath sounds nml Cardiovascular: positive: Regular rate & rhythm, No murmur, No gallop Abdomen: positive: Non-tender, No distention, Other (Abdomen soft, nondistended, appropriately tender to palpation, wounds clean dry and intact with ko in place. Left upper quadrant ELANA drain removed without any complication patient tolerated well serosanguineous drainage dressed with dry sterile gauze and Tegaderm.). negative: Guarding, Rebound Skin: positive: Color nml Extremities: positive: Non-tender, Full ROM, Nml appearance Neurologic/Psychiatric: positive: Oriented x3, CN's nml (2-12), Motor nml, Sensation nml, Mood/affect nml - LABS Result Diagrams: 02/02/20 09:15 02/02/20 09:15 - SEPSIS Current Stage of Sepsis: Ruled out - FOLLOW UP Follow Up: DISCHARGE INSTRUCTIONS TEMPLATE: No heavy lifting, pushing, or pulling. Stairs are allowed, no strenuous/ex ertional activities. 5-10lbs weight carrying limit (i.e. gallon of milk) If provided, abdominal binder while out of bed and while ambulating. Call or proceed to clinic/ER for fevers, severe pain, nausea, vomiting, inability to pass flatus/stool, bleeding, wound redness/discharge, weakness, excessively loose stool/diarrhea, or for any other reasonably worrisome symptom or concern. Soft diet, no raw vegetables, avoid high fiber foods. Colace 100mg by mouth twice to three times daily while taking narcotic pain medication. If no bowel movement in 24-48hr, may take 17g Miralax in 8oz water twice daily until bowel movement. May shower, no submersive bathing. Follow up in clinic in 2-4 weeks for wound check and staple removal. No driving while taking narcotic pain medications. Follow up with primary care provider and/or medical subspecialist following discharge as well. - TIME SPENT Time Spent in Discharge (Minutes): 45"
--- NOTE | 2020-02-01 11:09 | Discharge Plan ---
Discharge Plan Problem Reviewed?: Yes Disposition: Home, Self Care Condition: Serious Prescriptions: oxyCODONE [Roxicodone] 5 mg PO Q4HR PRN #40 tablet PRN Reason: Pain methocarbamoL [Robaxin] 500 mg PO Q6HR PRN #60 tablet PRN Reason: Spasms Acetaminophen [Tylenol] 650 mg PO Q6HR #240 capsule Celecoxib [CeleBREX] 100 mg PO BID #60 capsule Docusate Sodium 100Mg Capsule [Colace 100Mg Capsule] 100 mg PO BID #60 capsule Pregabalin [Lyrica] 100 mg PO BID #60 capsule polyethylene glycoL 3350 [Miralax] 17 gm PO BID #60 packet Pantoprazole Sodium 40 mg PO DAILY #30 granpkt. Diet: Regular Activity Restrictions: No heavy lift/push/pull Shower Restrictions: No (no submersive bathing) Driving Restrictions: Yes (not while taking muscle relaxants/narcotics/etc.) Instruction Topics: Hernia Repair Laparoscopic Dc, Hernia Surg, Hernia, Hernia How Develops, Umbilical Hernia Repair After Ch Assessment: Appropriate for discharge, return of bowel function, afebrile dynamically acceptable. Additional Instructions or Follow Up instructions: DISCHARGE INSTRUCTIONS TEMPLATE: No heavy lifting, pushing, or pulling. Stairs are allowed, no strenuous/exertional activities. 5-10lbs weight carrying limit (i.e. gallon of milk) If provided, abdominal binder while out of bed and while ambulating. Call or proceed to clinic/ER for fevers, severe pain, nausea, vomiting, inability to pass flatus/stool, bleeding, wound redness/discharge, weakness, excessively loose stool/diarrhea, or for any other reasonably worrisome symptom or concern. Soft diet, no raw vegetables, avoid high fiber foods. Colace 100mg by mouth twice to three times daily while taking narcotic pain medication. If no bowel movement in 24-48hr, may take 17g Miralax in 8oz water twice daily until bowel movement. May shower, no submersive bathing. Follow up in clinic in 2-4 weeks for wound check and staple removal. No driving while taking narcotic pain medications. Follow up with primary care provider and/or medical subspecialist following discharge as well. No Smoking: If you smoke, Please STOP! Call for help. Follow-up with: Pawan Cates MD [Primary Care Provider] - 1-2 Days Paola Suarez MD [Provider Admit Priv/Credential] -
[2020-02-01] MEDS: SODIUM CHLORIDE FLUSH 0.9% 10 ML SYRINGE IVP SCH ×2 (11:43→15:57)
[2020-02-02] MEDS: KETOROLAC 30 MG/ML VIAL IVP SCH ×2 (00:07→06:09)
[2020-02-02] MEDS: ACETAMINOPHEN 1,000 MG/100 ML 100 ML IV SCH ×2 (00:07→06:09)
[2020-02-02] MEDS: methocarbamoL 500 MG TABLET PO SCH ×2 (00:08→06:08)
[2020-02-02] MEDS: METOCLOPRAMIDE 10 MG/2 ML VIAL IVP SCH ×2 (00:08→06:08)
[2020-02-02] MEDS: SODIUM CHLORIDE FLUSH 0.9% 10 ML SYRINGE IVP SCH ×2 (00:09→08:53)
[2020-02-02] MEDS: PANTOPRAZOLE 40 MG VIAL IVP SCH (06:08)
[2020-02-02] MEDS: HEPARIN 5,000 UNIT/ML VIAL SUBQ SCH (08:41)
[2020-02-02] MEDS: CHOLECALCIFEROL 25 MCG TABLET PO SCH (08:42)
[2020-02-02] MEDS: CELECOXIB 100 MG CAPSULE PO SCH (08:42)
[2020-02-02] MEDS: amLODIPine 5 MG TABLET PO SCH (08:43)
[2020-02-02] MEDS: PREGABALIN 100 MG CAPSULE PO SCH (08:43)
[2020-02-02] MEDS: DOCUSATE SODIUM 100 MG CAPSULE PO SCH (08:43)
[2020-02-02] MEDS: polyethylene glycoL 3350 17 GM PACKET PO SCH (08:43)
[2020-02-02] MEDS: oxyCODONE 5 MG TABLET PO PRN (08:53)
[2020-02-02 09:36] LABS: BASOPHILS # (AUTO) 0.1 10^3/uL (0.0-0.1); BASOPHILS % (AUTO) 0.8 %; EOSINOPHILS # (AUTO) 0.3 10^3/uL (0.0-0.7); EOSINOPHILS % (AUTO) 3.9 %; HGB - HEMOGLOBIN 11.9 g/dL (12.0-16.0); LYMPHOCYTES # (AUTO) 1.6 10^3/uL (1.5-3.5); LYMPHOCYTES % (AUTO) 20.2 %; MEAN CORPUSCULAR HGB CONC 34.1 g/dL (32.0-36.0); MEAN CORPUSCULAR VOLUME 93.8 fL (81.0-99.0); MEAN PLATELET VOLUME 9.1 fL (7.9-10.8); MONOCYTES # (AUTO) 0.5 10^3/uL (0.0-1.0); MONOCYTES % (AUTO) 5.9 %; NEUTROPHILS # (AUTO) 5.3 10^3/uL (1.5-6.6); NEUTROPHILS % (AUTO) 68.8 %; PLT - PLATELET COUNT 256 10^3/uL (130-450); RED BLOOD COUNT 3.72 10^6/uL (4.20-5.40); RED CELL DISTRIBUTION WIDTH 12.1 % (12.0-15.0); WHITE BLOOD COUNT 7.7 x10^3/uL (4.8-10.8)
[2020-02-02 09:45] LABS: ALBUMIN 3.7 g/dL (3.2-5.5); ALBUMIN/GLOBULIN RATIO 1.4 (1.0-2.2); BILIRUBIN,TOTAL 1.3 mg/dL (0.2-1.0); CALCIUM 9.2 mg/dL (8.5-10.3); CREATININE 0.9 mg/dL (0.4-1.0); TOTAL PROTEIN 6.4 g/dL (6.7-8.2)
[2020-02-02 10:42] VITALS: BP 175/85
[2020-02-02] MEDS ORDERED: DEXAMETHASONE 4 MG/ML VIAL IVP ONE (11:12)
[2020-02-02] MEDS ORDERED: HYDROmorphone 1 MG/ML CARPUJECT IVP ONE (11:12)
[2020-02-02] MEDS ORDERED: SUCCINYLCHOLINE 200 MG/10 ML VIAL IVP ONE (11:12)
[2020-02-02] MEDS ORDERED: NEOSTIGMINE 1 MG/1 ML 10 ML MDV IVP ONE (11:12)
[2020-02-02] MEDS ORDERED: ACETAMINOPHEN 1,000 MG/100 ML 100 ML IV ONE (11:12)
[2020-02-02] MEDS ORDERED: ePHEDrine 50 MG/ML VIAL IVP ONE (11:12)
[2020-02-02] MEDS ORDERED: ROCURONIUM 50 MG/5 ML VIAL IVP ONE (11:12)
[2020-02-02] MEDS ORDERED: fentaNYL 100 MCG/2 ML VIAL IVP ONE (11:12)
[2020-02-02] MEDS ORDERED: GLYCOPYRROLATE 1 MG/5 ML VIAL IVP ONE (11:12)
[2020-02-02] MEDS ORDERED: LIDOCAINE-MPF 2% 5 ML VIAL IM ONE (11:12)
[2020-02-02] MEDS ORDERED: ONDANSETRON 4 MG/2 ML VIAL IVP ONE (11:12)
[2020-02-02] MEDS ORDERED: PROPOFOL 200 MG/20 ML VIAL IVP ONE (11:12)
[2020-02-02] MEDS ORDERED: MIDAZOLAM 2 MG/2 ML VIAL IVP ONE (11:12)
== END 2020-02-02 11:41 | disposition home or self-care (01) | DRG 331 ==
LOC: ED 17:11 → MS2 23:58
PROVIDERS: ADMIT Surgery; ATTEND Surgery
PROC: 0DN84ZZ Release Small Intestine, Percutaneous Endoscopic Approach (ICD-10-PCS; 2020-01-30)
PROC: 0DP Gastrointestinal System, Removal (ICD-10-PCS; 2020-01-30)
PROC: 0DB80ZZ Excision of Small Intestine, Open Approach (ICD-10-PCS; principal; 2020-01-30 14:15)
PROC: 0WUF0JZ Supplement Abdominal Wall with Synthetic Substitute, Open Approach (ICD-10-PCS; 2020-01-30 14:15)
DX: K42.0 Umbilical hernia with obstruction, without gangrene (principal); Q43.0 Meckel's diverticulum (displaced) (hypertrophic); K66.0 Peritoneal adhesions (postprocedural) (postinfection); K57.30 Diverticulosis of large intestine without perforation or abscess without bleeding; I10 Essential (primary) hypertension; E66.01 Morbid (severe) obesity due to excess calories; F17.200 Nicotine dependence, unspecified, uncomplicated; H54.7 Unspecified visual loss; Z68.38 Body mass index [BMI] 38.0-38.9, adult; Z90.49 Acquired absence of other specified parts of digestive tract; Z79.899 Other long term (current) drug therapy; Z72.89 Other problems related to lifestyle; Z87.19 Personal history of other diseases of the digestive system; Z86.010 Personal history of colon polyps; Z87.01 Personal history of pneumonia (recurrent)
CPT/HCPCS: 36415; 71045; 74177; 80053; 81003; 83690; 85025; 96365; 96375; 99284; 99285; A9270; C1781; J0131; J0330; J1170; J1650; J2765; J7120; Q9967; 81001; 87086

== ENCOUNTER 2021-01-17 07:58 | Outpatient (CLI) | payer MEDICARE, OTHER ==
--- NOTE | 2021-01-17 09:10 | DEXA Report ---
PROCEDURE: Dexa Spine and/or Hip INDICATIONS: post menopausal TECHNIQUE: Dual energy x-ray absorptiometry (DXA) was performed on a [employer] System. Regions measur ed are the AP Spine, femoral neck, and if needed forearm. COMPARISON: None. FINDINGS: Lumbar Spine: Bone Mineral Density 1.2-0 g/cm/cm,T score 0.3. Left Hip: Bone Mineral Density 1.050 g/cm/cm,T score 0.3. Left Femoral Neck: Bone Mineral Density 0.895 g/cm/cm, T score - -1.0. (T score greater or equal to -1.0: NORMAL) (T score from -1.1 to -2.4: OSTEOPENIA) (T score less than or equal to -2.5 to: OSTEOPOROSIS) Impression: Normal bone mineral density. Patients with diagnosis of osteoporosis or osteopenia should have regular bone mineral density assess ment. For those eligible for Medicare, routine testing is allowed once every 2 years. Testing frequ ency can be increased for patients who have rapidly progressing disease or for those who are receivin g medical therapy to restore bone mass. Reviewed by: Caden Baer MD on 01/17/2021 9:09 AM PDT Approved by: Caden Baer MD on 01/17/2021 9:09 AM PDT Station ID: [id number]
== END 2021-01-17 07:59 | disposition home or self-care (01) ==
LOC: DI 07:58
PROVIDERS: ATTEND Family Medicine
DX: N95.9 Unspecified menopausal and perimenopausal disorder (principal)

== ENCOUNTER 2021-01-21 07:10 | Outpatient (CLI) | payer MEDICARE, OTHER ==
--- NOTE | 2021-01-21 09:41 | CT Report ---
PROCEDURE: Low Dose Lung Cancer Screen INDICATIONS: CURRENT SMOKER TECHNIQUE: Noncontrast low-dose images were acquired from the pulmonary apices to the posterior costophrenic ang les. Multiplanar MIP reformats were then acquired. For radiation dose reduction, the following was used: automated exposure control, adjustment of mA and/or kV according to patient size. COMPARISON: Lung bases on CT abdomen and pelvis 01/29/2020. FINDINGS: Image quality: Excellent. Lungs and pleura: No significant pulmonary nodules. No mass. Minimal streaky opacity is appearance o f atelectasis or scarring. No significant groundglass opacity. Trace secretions in the upper trachea. Airways are otherwise clear. No pleural effusion. No pneumothorax. Mediastinum: Heart size is normal. Minimal coronary artery calcifications. No pericardial effusion. No mediastinal adenopathy by size criteria. Thoracic aorta and central pulmonary arteries are norm al in size. Esophagus is normal in caliber. No hiatal hernia. Bones and chest wall: No suspicious bony lesions. No vertebral body compression fractures. No axil ori or supraclavicular adenopathy by size criteria. The thyroid is normal in size and there are no incidental findings. Abdomen: Visualized upper abdomen solid organs and bowel loops appear normal in the absence of contr ast. IMPRESSION: 1. No significant pulmonary nodules. Lung RADS 1. -Recommend follow-up CT cancer screening in 12 months. 2. Minimal coronary artery calcifications. Reviewed by: Renato Mosqueda MD on 01/21/2021 9:40 AM PDT Approved by: Renato Mosqueda MD on 01/21/2021 9:40 AM PDT Station ID: [id number]
== END 2021-01-21 07:11 | disposition home or self-care (01) ==
LOC: DI 07:10
PROVIDERS: ATTEND Family Medicine
DX: Z12.2 Encounter for screening for malignant neoplasm of respiratory organs (principal); I25.10 Atherosclerotic heart disease of native coronary artery without angina pectoris; F17.210 Nicotine dependence, cigarettes, uncomplicated

== ENCOUNTER 2022-01-05 08:28 | Outpatient (CLI) | payer MEDICARE, OTHER ==
--- NOTE | 2022-01-05 16:02 | CT Report ---
PROCEDURE: Low Dose Lung Cancer Screen INDICATIONS: SMOKER TECHNIQUE: Noncontrast low-dose axial images were acquired from the pulmonary apices to the posterior costophren ic angles. Multiplanar MIP reformats were then reconstructed. For radiation dose reduction, the follo wing was used: automated exposure control, adjustment of mA and/or kV according to patient size. COMPARISON: None. FINDINGS: Image quality: Excellent. Lungs and pleura: No pulmonary nodules. No acute airspace opacities. No pleural effusion or pneumoth orax. Mediastinum: Heart size is normal. No pericardial effusion. No mediastinal adenopathy by size crit eria. Thoracic aorta and central pulmonary arteries are normal in size. Esophagus is normal in lisa ladan. No hiatal hernia. Bones and chest wall: No suspicious bony lesions. No vertebral body compression fractures. No axil ori or supraclavicular adenopathy by size criteria. The thyroid is normal in size and there are no incidental findings. Abdomen: Visualized upper abdomen solid organs and bowel loops appear normal in the absence of contr ast. IMPRESSION: No suspicious pulmonary nodules or mass lesions. Lung RADS 1. Annual CT follow-up recommended. Reviewed by: Michelle He MD on 01/05/2022 4:00 PM PDT Approved by: Michelle He MD on 01/05/2022 4:00 PM PDT Station ID: [id number]
== END 2022-01-05 08:29 | disposition home or self-care (01) ==
LOC: DI 08:28
PROVIDERS: ATTEND Nurse Practitioner Family
DX: Z12.2 Encounter for screening for malignant neoplasm of respiratory organs (principal); F17.210 Nicotine dependence, cigarettes, uncomplicated

== ENCOUNTER 2022-03-14 09:24 | Day surgery (SDC) | payer MEDICARE, OTHER ==
[2022-03-14] MEDS ORDERED: LACTATED RINGERS 1,000 ML IV ONE ×2 (10:03→11:21)
[2022-03-14] MEDS ORDERED: PROPOFOL 500 MG/50 ML 500 MG/50 ML VIAL ONE (10:45)
--- NOTE | 2022-03-14 10:53 | ANESTHESIA ---
Pre-Anesthesia VS, & Labs - Diagnosis screening - Procedure colonoscopy Vital Signs: Temp Pulse Resp BP Pulse Ox O2 Flow Rate 36 C L 73 16 163/87 H 97 03/14/22 09:30 03/14/22 09:30 03/14/22 09:30 03/14/22 09:30 03/14/22 09:30 Height: 5 ft 4 in Weight (kg): 98.1 kg Body Mass Index: 37.1 BMI Classification: Obese - NPO >8 hours - Is Patient ?: No Home Medications and Allergies Home Medications: Ambulatory Orders Rosuvastatin Calcium [Crestor] 20 mg PO DAILY 03/13/22 ALPRAZolam [Alprazolam] 0.25 mg PO DAILY PRN 12/16/18 Amlodipine Besylate 5 mg PO DAILY 12/16/18 Rosuvastatin Calcium [Crestor] 20 mg PO DAILY 03/13/22 Allergies/Adverse Reactions: Allergies Allergy/AdvReac Type Severity Reaction Status Date / Time No Known Drug Allergies Allergy Verified 01/29/20 17:17 Anes History & Medical History - Anesthetic History Anesthesia Complications: reports: No previous complications Family history of Anesthesia Complications: Denies Family history of Malignant Hyperthermia: Denies - Medical History Cardiovascular: reports: Hypertension Pulmonary: reports: Pneumonia Gastrointestinal: reports: Colon polyps, Diverticulitis, Other Urinary: reports: None Neuro: reports: None Musculoskeletal: reports: None Endocrine/Autoimmune: reports: None Blood Disorders: reports: None Skin: reports: Eczema Smoking Status: Current some day smoker - Surgical History General: reports: Bowel surgery, Colonoscopy Gynecologic: reports: section, Hysterectomy Exam General: Alert, Oriented x3, Cooperative Dental: WNL Mouth Openin Fingerbreadth Neck Mobility: Normal Mallampati classification: II Thyromental Distance: 4-6 cm Respiratory: Lungs clear Cardiovascular: Regular rate Plan Anesthesia Type: Total IV Consent for Procedure(s) Verified and Reviewed: Yes Code Status: Attempt Resuscitation ASA classification: 2-Mild systemic disease Is this case an emergency?: No
[2022-03-14 11:42] VITALS: BP 131/80
--- NOTE | 2022-03-14 17:51 | ANESTHESIA POST OP EVALUATION ---
Anesthesia Post Eval - Post Anesthesia Eval Vitals: Last Vital Signs Temp 36.5 C 03/14/22 11:40 Pulse 60 03/14/22 11:40 Resp 19 03/14/22 11:40 BP 131/80 H 03/14/22 11:40 Pulse Ox 98 03/14/22 11:40 O2 Flow Rate CV Function Including HR & BP: Stable Pain Control: Satisfactory Nausea & Vomiting: Negative Mental Status: Baseline Respiratory Status: Airway Patent Hydration Status: Satisfactory Anesthesia Complications: None
== END 2022-03-14 09:25 | disposition home or self-care (01) ==
LOC: SDS 09:24
PROVIDERS: ATTEND Surgery
PROC: 0DBP8ZX Excision of Rectum, Via Natural or Artificial Opening Endoscopic, Diagnostic (ICD-10-PCS; 2022-03-14)
PROC: 0DBM8ZX Excision of Descending Colon, Via Natural or Artificial Opening Endoscopic, Diagnostic (ICD-10-PCS; principal; 2022-03-14 10:30)
DX: Z12.11 Encounter for screening for malignant neoplasm of colon (principal); K57.30 Diverticulosis of large intestine without perforation or abscess without bleeding; K63.5 Polyp of colon; K62.1 Rectal polyp; I10 Essential (primary) hypertension; F17.210 Nicotine dependence, cigarettes, uncomplicated; E66.9 Obesity, unspecified; Z68.37 Body mass index [BMI] 37.0-37.9, adult
CPT/HCPCS: 45380; J7120

== ENCOUNTER 2022-10-27 08:14 | Outpatient (CLI) | payer MEDICARE, OTHER ==
[2022-10-27 08:38] LABS: ALBUMIN 4.5 g/dL (3.2-5.5); ALBUMIN/GLOBULIN RATIO 1.7 (1.0-2.2); BILIRUBIN,TOTAL 1.5 mg/dL (0.2-1.0); CALCIUM 9.3 mg/dL (8.5-10.3); CREATININE 0.7 mg/dL (0.4-1.0); POTASSIUM 4.3 mmol/L (3.5-5.0); TOTAL PROTEIN 7.1 g/dL (6.7-8.2)
[2022-10-27 10:15] LABS: ESTIMATED AVERAGE GLUCOSE 120 mg/dL (70-100); HEMOGLOBIN A1c% 5.8 % (4.27-6.07)
== END 2022-10-27 08:15 | disposition home or self-care (01) ==
LOC: LAB 08:14
PROVIDERS: ATTEND Nurse Practitioner Family
DX: I10 Essential (primary) hypertension (principal); E78.5 Hyperlipidemia, unspecified; Z13.1 Encounter for screening for diabetes mellitus
CPT/HCPCS: 36415; 80053; 83036

== ENCOUNTER 2023-01-25 08:05 | Outpatient (CLI) | payer MEDICARE, OTHER ==
--- NOTE | 2023-01-25 12:40 | CT Report ---
PROCEDURE: Low Dose Lung Cancer Screen INDICATIONS: NICOTINE DEPENDENCE TECHNIQUE: A CT scan of the chest was performed. Intravenous contrast media was not administered. Images were re corded and evaluated at appropriate window settings. Reformats: axial MIP of the chest, coronal and s agittal. For radiation dose reduction, the following was used: automated exposure control, adjustment of mA and/or kV according to patient size. COMPARISON: None. FINDINGS: Image quality: Excellent. Prior cancer history: Unsure. Lungs and pleura: No pleural effusions. No pneumothorax. No suspicious pulmonary nodules which requi re follow up. Juxtapleural nodule along the right major fissure, most consistent with a benign intrap ulmonary lymph node. Mediastinum: Heart size is normal. No pericardial effusion. No large vessel abnormality. No mediastin al adenopathy by size criteria. One vessel coronary artery calcifications. Chest wall and lower neck: Large, heterogeneous thyroid. No axillary or supraclavicular adenopathy by size. Bones: No aggressive osseous abnormality. Upper Abdomen: Unremarkable. IMPRESSION: Lung RAD: 1 - Negative. Recommendation: Continue annual screening in 12 Months with LDCT Non-Lung Significant Findings: Mass - Neck. Large, heterogeneous thyroid, suggestive of underlying th yroiditis. Correlate with thyroid panel if there is no history of thyroid dysfunction. Reviewed by: Kirk Mansfield on 01/25/2023 12:39 PM PDT Approved by: Kirk Mansfield on 01/25/2023 12:39 PM PDT Station ID: [id number]
== END 2023-01-25 08:06 | disposition home or self-care (01) ==
LOC: DI 08:05
PROVIDERS: ATTEND Nurse Practitioner Family
DX: Z12.2 Encounter for screening for malignant neoplasm of respiratory organs (principal); F17.210 Nicotine dependence, cigarettes, uncomplicated

== ENCOUNTER 2023-02-12 07:48 | Outpatient (CLI) | payer MEDICARE, OTHER ==
--- NOTE | 2023-02-12 16:43 | Ultrasound Report ---
PROCEDURE: Ext Limited Non Vascular INDICATIONS: LEFT WRIST PAIN, SOFT TISSUE MASS TECHNIQUE: Real-time scanning was performed of the left wrist, with image documentation. COMPARISON: None. FINDINGS: Focused ultrasound examination of lateral left wrist at patient's reported area of pain an d lump shows no discrete soft tissue mass or fluid collection. IMPRESSION: No abnormality is seen in lateral left breast at patient's reported area of pain and pal pable lump. Reviewed by: Caden Baer MD on 02/12/2023 4:41 PM PDT Approved by: Caden Baer MD on 02/12/2023 4:41 PM PDT Station ID: [id number]
== END 2023-02-12 07:49 | disposition home or self-care (01) ==
LOC: DI 07:48
PROVIDERS: ATTEND Physician Assistant
DX: M25.532 Pain in left wrist (principal); M79.9 Soft tissue disorder, unspecified

== ENCOUNTER 2023-03-01 08:20 | Outpatient (CLI) | payer MEDICARE, OTHER ==
--- NOTE | 2023-03-01 18:03 | MRI Report ---
PROCEDURE: WRIST WO - LT INDICATIONS: LEFT WRIST PAIN TECHNIQUE: Noncontrast coronal proton density fast spin echo and T2 fast spin echo with fat saturation; coronal 3-D gradient echo, axial T1 spin echo and T2 fast spin echo with fat saturation, sagittal T1 spin ech o through the wrist. COMPARISON: Left wrist ultrasound dated 02/12/2023. FINDINGS: Image quality: Diagnostic. Patient motion is noted. Bones and cartilage: The carpal bones are normally aligned. Osteoarthritic changes are noted through out wrist joints with joint space narrowing, subchondral sclerosis and subcortical cystic changes mor e notably at first CMC joint. No acute fracture or dislocation. No evidence of avascular necrosis. Carpal ligaments: The scapholunate and lunotriquetral ligaments appear intact. In the absence of in tra-articular contrast, the extrinsic carpal ligaments are not well identified. On sagittal images, the pisohamate ligament appears intact. Triangular fibrocartilage complex: Focal signal abnormality within central portion of regular fibroca rtilage is seen, concerning for focal perforation. The adjacent meniscal homolog appears normal in th e absence of intra-articular contrast. The extensor carpi ulnaris tendon is mildly thickened. Tendons and soft tissues: There is significant thickening of the extensor pollicis brevis and abducto r pollicis longus tendons with intrasubstance T2 hyperintense signal and fluid distending tendon montes th at the level of radial styloid extending to the level of first metacarpal base. The carpal tunnel structures appear normal, including the median nerve. The ulnar nerve appears normal within Guyon's canal. Rest of the extensor tendon compartments demonstrate normal morphology, without pathologic te ndon sheath fluid. No soft tissue ganglion cysts. IMPRESSION: 1. Finding is concerning for tendinosis and low-grade partial-thickness tear involving first extensor compartment as described above. 2. Mild tendinosis also seen involving extensor carpi ulnaris tendon at the level of ulnar styloid. 3. Finding may indicate subtle TFCC perforation in its midportion. 4. Scapholunate and lunotriquetral ligaments are intact. 5. 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 No fracture or dislocation. No evidence of avascular necrosis. Reviewed by: Caden Baer MD on 03/01/2023 6:01 PM PDT Approved by: Caden Baer MD on 03/01/2023 6:01 PM PDT Station ID: [id number]
== END 2023-03-01 08:21 | disposition home or self-care (01) ==
LOC: DI 08:20
PROVIDERS: ATTEND Physician Assistant
DX: M67.834 Other specified disorders of tendon, left wrist (principal); M19.032 Primary osteoarthritis, left wrist

== ENCOUNTER 2023-05-31 08:06 | Outpatient (CLI) | payer MEDICARE, OTHER ==
[2023-05-31 08:21] LABS: BASOPHILS # (AUTO) 0.1 10^3/uL (0.0-0.1); BASOPHILS % (AUTO) 1.2 %; EOSINOPHILS # (AUTO) 0.2 10^3/uL (0.0-0.7); EOSINOPHILS % (AUTO) 2.7 %; HCT - HEMATOCRIT 38.5 % (37.0-47.0); HGB - HEMOGLOBIN 13.4 g/dL (12.0-16.0); LYMPHOCYTES # (AUTO) 1.7 10^3/uL (1.5-3.5); LYMPHOCYTES % (AUTO) 29.6 %; MEAN CORPUSCULAR HEMOGLOBIN 32.2 pg (27.0-31.0); MEAN CORPUSCULAR HGB CONC 34.8 g/dL (32.0-36.0); MEAN CORPUSCULAR VOLUME 92.5 fL (81.0-99.0); MONOCYTES # (AUTO) 0.4 10^3/uL (0.0-1.0); MONOCYTES % (AUTO) 6.8 %; NEUTROPHILS # (AUTO) 3.5 10^3/uL (1.5-6.6); NEUTROPHILS % (AUTO) 59.5 %; PLT - PLATELET COUNT 231 10^3/uL (130-450); RED BLOOD COUNT 4.16 10^6/uL (4.20-5.40); RED CELL DISTRIBUTION WIDTH 11.9 % (12.0-15.0); WHITE BLOOD COUNT 5.9 x10^3/uL (4.8-10.8)
[2023-05-31 08:44] LABS: ALBUMIN 4.6 g/dL (3.2-5.5); ALBUMIN/GLOBULIN RATIO 2.4 (1.0-2.2); ALKALINE PHOSPHATASE 60 IU/L (42-121); ALT ALANINE AMINOTRANSFERASE 21 IU/L (10-60); AST ASPARTATE AMINOTRANSFERASE 17 IU/L (10-42); BILIRUBIN,TOTAL 1.6 mg/dL (0.2-1.0); BUN - BLOOD UREA NITROGEN 12 mg/dL (6-20); CALCIUM 9.8 mg/dL (8.5-10.3); CARBON DIOXIDE - CO2 27 mmol/L (21-32); CHLORIDE 107 mmol/L (101-111); CHOL/HDL RATIO 2.7 (<4.4); CHOLESTEROL 126 mg/dL; CREATININE 0.8 mg/dL (0.6-1.3); GFR - MDRD 71 (>89); GLUCOSE 124 mg/dL (74-104); HDL CHOLESTEROL 46 mg/dL; LDL CHOLESTEROL,CALCULATED 61 mg/dL; LDL/HDL RATIO 1.3 (<4.4); SODIUM 141 mmol/L (135-145); TOTAL PROTEIN 6.5 g/dL (6.4-8.9); TRIGLYCERIDES 97 mg/dL (48-352); VLDL CHOLESTEROL 19 mg/dL
[2023-05-31 08:57] LABS: THYROID STIMULATING HORMONE 1.65 uIU/mL (0.34-5.60)
[2023-05-31 11:05] LABS: ESTIMATED AVERAGE GLUCOSE 117 mg/dL (70-100); HEMOGLOBIN A1c% 5.7 % (4.27-6.07)
== END 2023-05-31 08:07 | disposition home or self-care (01) ==
LOC: LAB 08:06
PROVIDERS: ATTEND Nurse Practitioner Family
DX: Z00.00 Encounter for general adult medical examination without abnormal findings (principal); I10 Essential (primary) hypertension; E78.5 Hyperlipidemia, unspecified; Z13.1 Encounter for screening for diabetes mellitus; R73.03 Prediabetes
CPT/HCPCS: 36415; 80053; 80061; 83036; 83721; 84443; 85025

== ENCOUNTER 2023-07-26 08:06 | Outpatient (CLI) | payer MEDICARE, OTHER ==
--- NOTE | 2023-07-26 12:58 | Ultrasound Report ---
PROCEDURE: Soft Tissue Head or Neck INDICATIONS: ENLARGED THYROID TECHNIQUE: Real-time scanning was performed of the thyroid gland, with image documentation. COMPARISON: Chest CT 01/25/2023 FINDINGS: Right: Thyroid lobe measures 5.6 x 1.9 x 2.8 cm, and is heterogeneous in echotexture. Left: Thyroid lobe measures 6.2 x 2.4 x 2.5 cm, and is heterogeneous in echotexture. Isthmus: 0.2 cm thick. Nodule number: One Location: Right Size: 4.5 x 2.5 x 2.7 cm. Composition: Solid. Echogenicity: Isoechoic. Shape: wider than tall (0 points). Margins: Smooth (0 points). Echogenic foci: Macrocalcification (1 point). Total points: 4 ACR TI-RADS category: TI-RADS 4: Moderately suspicious. Nodule number: Two Location: Left inferior Size: 2.1 x 1.3 x 1.3 cm. Composition: Spongiform (0 points). Echogenicity: Hypoechoic (2 points). Shape: wider than tall (0 points). Margins: Smooth (0 points). Echogenic foci: None (0 points). Total points: 2 ACR TI-RADS category: TI-RADS 2: Not suspicious. IMPRESSION: Thyroid nodules as above. Recommend fine-needle aspiration of the right thyroid lobe nodule. ACR TI-RADS definitions and recommendations: TI-RADS 1 (benign): 0 points. FNA not needed. TI-RADS 2 (not suspicious): 2 points. FNA not needed. TI-RADS 3 (mildly suspicious): 3 points. "FNA if 2.5 cm or larger, follow up if 1.5 cm or larger (at 1, 3, and 5 years). TI-RADS 4 (moderately suspicious): 4-6 points. "FNA if 1.5 cm or larger, follow up if 1 cm or larger (at 1, 2, 3, and 5 years). TI-RADS 5 (highly suspicious): 7 points or more. "FNA if 1 cm or larger, follow up if 0.5 cm or larger (every year for 5 years). Reviewed by: Yvan Foreman MD on 07/26/2023 12:57 PM PDT Approved by: Yvan Foreman MD on 07/26/2023 12:57 PM PDT Station ID: [id number]
--- NOTE | 2023-07-26 15:32 | DEXA Report ---
PROCEDURE: Dexa Spine and/or Hip INDICATIONS: POST MENOPAUAL TECHNIQUE: Dual energy x-ray absorptiometry (DXA) was performed on a [employer] System. Regions measur ed are the AP Spine, femoral neck, and if needed forearm. COMPARISON: 01/17/2021 FINDINGS: Lumbar Spine: Bone Mineral Density: 1.269 g/cm/cm,T score: 0.7. Since the most recent prior study, there has been a statistically significant increase in bone mineral density by 4.0 percent. Left Femoral Neck: Bone Mineral Density: 0.942 g/cm/cm, T score: -0.7. Left Hip: Bone Mineral Density: 1.045 g/cm/cm,T score: 0.3. There has been no statistically significant change in bone mineral density since the prior study. (T score greater or equal to -1.0: NORMAL) (T score from -1.1 to -2.4: OSTEOPENIA) (T score less than or equal to -2.5 to: OSTEOPOROSIS) Impression: By WHO criteria, this patient has normal bone density. Interval statistical increase in bone mineral density of the lumbar spine. No statistical interval ch mechelle in bone mineral density of the hip. Patients with diagnosis of osteoporosis or osteopenia should have regular bone mineral density assess ment. For those eligible for Medicare, routine testing is allowed once every 2 years. Testing frequ ency can be increased for patients who have rapidly progressing disease or for those who are receivin g medical therapy to restore bone mass. Reviewed by: Mariann Brown MD, PhD on 07/26/2023 3:31 PM PDT Approved by: Mariann Brown MD, PhD on 07/26/2023 3:31 PM PDT Station ID: [id number]
== END 2023-07-26 08:07 | disposition home or self-care (01) ==
LOC: DI 08:06
PROVIDERS: ATTEND Nurse Practitioner Family
DX: E04.2 Nontoxic multinodular goiter (principal); Z78.0 Asymptomatic menopausal state

== ENCOUNTER 2023-08-14 09:45 | Outpatient (CLI) | payer MEDICARE, OTHER ==
[~2023-08-14 09:45] MED LIST changes: -CEFAZOLIN SODIUM IN 0.9 % NACL 2 GM/100 ML BAG IV ONE; +LIDOCAINE-MPF 1% 5 ML VIAL ONE
[2023-08-14] MEDS: LIDOCAINE-MPF 1% 5 ML VIAL TD ONE (11:07)
--- NOTE | 2023-08-14 23:42 | Ultrasound Report ---
PROCEDURE: FNA Bx w/US Gdn 1st Les INDICATIONS: THYROID NODULE TECHNIQUE: The indications, alternatives, benefits, risks, and complications of the procedure were explained to the patient. Written informed consent was obtained and placed in the chart. The area of interest wa s examined sonographically and a site was chosen for ultrasound guided percutaneous sampling. The sk in was prepared and draped in the usual fashion, and anesthetized with 1% lidocaine infiltrated from the skin down to the lesion. Multiple passes were then performed, with contents emptied into an appr [facility] pathology specimen container. A bandage was applied to the area of access at completion of t he study. COMPARISON: Thyroid ultrasound 07/26/2023. FINDINGS: Location(s) of lesion(s) sampled: Right thyroid nodule measuring 4.3 cm. Isabel: 25 gauge hypodermic needles x5. 22 gauge hypodermic needles x1. Medications: 1% lidocaine for local anaesthesia. Complications: None. IMPRESSION: Successful ultrasound-guided right thyroid nodule fine needle aspiration, with cytology results pendi ng. Reviewed by: Renato Mosqueda MD on 08/14/2023 11:40 PM PDT Approved by: Renato Mosqueda MD on 08/14/2023 11:40 PM PDT Station ID: [id number]
== END 2023-08-14 09:46 | disposition home or self-care (01) ==
LOC: DI 09:45
PROVIDERS: ATTEND Nurse Practitioner Family
DX: E04.2 Nontoxic multinodular goiter (principal)
CPT/HCPCS: 10005

== ENCOUNTER 2023-10-17 08:00 | Outpatient (CLI) | payer MEDICARE, OTHER | END 2023-10-17 23:59 | disposition home or self-care (01) | LOC: LAB.N 08:00 | PROVIDERS: ATTEND Physician Assistant | DX: J06.9 Acute upper respiratory infection, unspecified (principal) ==